=== PATIENT | male | born 1955 ===

== ENCOUNTER 2018-11-08 10:36 | Inpatient (IN) | payer MEDICARE ==
[2018-11-08] MEDS ORDERED: Aspirin 325 mg EC Tablets PO STA (11:49)
[2018-11-08] MEDS ORDERED: Sodium Chloride 0.9% 1,000 ML IV ONE (11:49)
--- NOTE | 2018-11-08 11:54 | C.PDOC ---
History Of Present Illness 63 y/o male with a PMHx of HTN, hypercholesterolemia, and CVA, COPD, presents to the ED for evaluation of left upper back pain, radiating to the left shoulder and arm, developing for the past 2-3 days. Last night he also noticed some left hand numbness. Patient admits the pain is worse with left arm movement. Denies any known trauma or injury, headache, dizziness, SOB, palpitations, or extremity weakness. Time Seen by Provider: 11/08/18 11:35 Chief Complaint (Nursing): Back Pain History Per: Patient History/Exam Limitations: no limitations Onset/Duration Of Symptoms: Days (x 3) Current Symptoms Are (Timing): Still Present Quality Of Discomfort: "Pain" Severity: Moderate Associated Symptoms: New Numbness (left hand) Exacerbating Factor(s): Movement (of left arm) Past Medical History Reviewed: Historical Data, Nursing Documentation, Vital Signs Vital Signs: Last Vital Signs Temp 97.9 F 11/08/18 10:57 Pulse 88 11/08/18 10:57 Resp 18 11/08/18 10:57 BP 150/83 11/08/18 10:57 Pulse Ox 97 11/08/18 10:57 - Medical History PMH: CVA, HTN, Hypercholesterolemia Surgical History: Appendectomy Other Surgeries: Right leg surgery - [facility] Procedures ANGIOPLASTY OR ATHERECTOMY OF OTHER NON-CORONARY VESSEL(S) (12/10/06) CONTRAST AORTOGRAM (12/10/06) CONTRAST ARTERIOGRAM-LEG (12/10/06) INSERTION OF [id number] PERIPHERAL VESSEL STENT(S) (12/10/06) INSERTION OF ONE VASCULAR STENT (12/10/06) PROCEDURE ON SINGLE VESSEL (12/10/06) Family History: States: Unknown Family Hx - Social History Hx Tobacco Use: Yes Hx Alcohol Use: Yes Hx Substance Use: No - Immunization History Hx Tetanus Toxoid Vaccination: No Hx Influenza Vaccination: No Hx Pneumococcal Vaccination: Yes Review Of Systems Constitutional: Negative for: Fever, Chills, Sweats Eyes: Negative for: Vision Change Cardiovascular: Positive for: Chest Pain (left). Negative for: Palpitations Respiratory: Negative for: Shortness of Breath, SOB with Excertion Gastrointestinal: Negative for: Nausea, Vomiting, Abdominal Pain Musculoskeletal: Positive for: Shoulder Pain (left), Arm Pain (left), Back Pain (left upper) Skin: Negative for: Rash, Lesions Neurological: Positive for: Numbness (left hand). Negative for: Weakness, Incoordination, Headache, Dizziness Physical Exam - Physical Exam Appears: Non-toxic, No Acute Distress Skin: Normal Color, Warm, No Rash Head: Normacephalic Eye(s): bilateral: PERRL Oral Mucosa: Moist Neck: Trachea Midline, Supple Chest: Tenderness (reproducible left anterior chest wall tenderness over the pec toris muscle) Cardiovascular: Rhythm Regular, No Murmur, No JVD Respiratory: No Accessory Muscle Use, No Rales, No Rhonchi, No Stridor, No Wheezing Gastrointestinal/Abdominal: Soft, No Tenderness, No Distention, No Guarding Extremity: Normal ROM (of LUE), No Pedal Edema, No Calf Tenderness, Capillary Refill (less than 2sec), No Swelling Pulses: Left Radial: Normal, Right Radial: Normal Neurological/Psych: Oriented x3, Normal Speech ED Course And Treatment - Laboratory Results Result Diagrams: 11/08/18 12:02 11/08/18 12:02 Lab Interpretation: No Acute Changes ECG: Interpreted By Me, Viewed By Me ECG Interpretation: Abnormal Interpretation Of ECG: SR@89/min, LAD, RBBB, T wave inversion in II, III, V4-V6 O2 Sat by Pulse Oximetry: 97 Pulse Ox Interpretation: Normal Progress Note: Blood work and urine sent to the lab. EKG and CXR ordered. Administered 325 mg PO ASA x1. NS IV fluids infusing. Blood work review, Troponin I - normal. EKG appears abnormal. Case discussed with and admission to tele arraned with Dx: CHest pain, abnoraml EKG Disposition - Disposition Disposition: HOSPITALIZED Disposition Time: 13:02 Condition: STABLE - Clinical Impression Clinical Impression: Chest pain, Abnormal EKG - PA / PLANT PHYSIOLOGIST / Resident Statement MD/DO has reviewed & agrees with the documentation as recorded. - Scribe Statement The provider has reviewed the documentation as recorded by the Scribkyara Suarez All medical record entries made by the Scribe were at my direction and pers onally dictated by me. I have reviewed the chart and agree that the record accurately reflects my personal performance of the history, physical exam, medical decision making, and the department course for this patient. I have also personally directed, reviewed, and agree with the discharge instructions and disposition.
[2018-11-08] MEDS ORDERED: Sodium Chloride 0.9% 1,000 ML ONE (12:04)
[2018-11-08] MEDS ORDERED: Aspirin 325 mg EC Tablets PO ONE (12:04)
[2018-11-08 12:13] LABS: BASO % 0.6 % (0.0-2.0); EOS # 0.1 K/uL (0.0-0.7); EOS % 2.2 % (0.0-4.0); HEMOGLOBIN 16.3 g/dL (12.0-18.0); LYMPH # 1.4 K/uL (1.0-4.3); LYMPH % 20.3 % (20.0-40.0); MEAN CELL VOLUME 92.4 fL (80.0-94.0); MEAN CORPUSCULAR HEMOGLOBIN 30.7 pg (27.0-31.0); MEAN CORPUSCULAR HGB CONC 33.3 g/dL (33.0-37.0); MEAN PLATELET VOLUME 8.7 fL (7.2-11.7); MONO # 0.5 K/uL (0.0-0.8); NEUT # 4.7 K/uL (1.8-7.0); NEUT % 68.9 % (50.0-75.0); NRBC % 0.1 % (0.0-2.0); RBC 5.3 Mil/uL (4.40-5.90); RED CELL DISTRIBUTION WIDTH 15.4 % (11.5-14.5); WHITE BLOOD COUNT 6.8 K/uL (4.8-10.8)
[2018-11-08 12:20] LABS: INR 1.1; PROTHROMBIN TIME 12.2 SECONDS (9.7-12.2)
[2018-11-08 12:28] LABS: ALB/GLOB RATIO 1.2 (1.0-2.1); ALBUMIN 4.2 g/dL (3.5-5.0); ALT/SGPT 7 U/L (21-72); AST/SGOT 26 U/L (17-59); BLOOD UREA NITROGEN 16 mg/dL (9-20); CALCIUM 9.3 mg/dl (8.6-10.4); GFR NON-AFRICAN AMERICAN > 60
[2018-11-08 12:37] LABS: B-TYPE NATRIURETIC PEPTIDE 350 pg/mL (0-900)
--- NOTE | 2018-11-08 12:49 | RAD ---
Date of service: 11/08/2018 HISTORY: Chest pain COMPARISON: No prior. TECHNIQUE: Chest PA and lateral FINDINGS: LINES AND TUBES: None. LUNG AND PLEURA: The lungs are hyperinflated and there is peribronchial thickening with chronic changes in both lungs. There is no focal consolidation. No pleural effusion or pneumothorax. HEART AND MEDIASTINUM: The heart is not enlarged. There are aortic atherosclerotic calcifications present. The hilar and mediastinal contours are within normal limits. SKELETAL STRUCTURES: The bony structures are within normal limits for the patient's age. VISUALIZED UPPER ABDOMEN: Normal. OTHER FINDINGS: None. IMPRESSION: No active pulmonary disease. COPD.
--- NOTE | 2018-11-08 14:21 | CP.PCM.PN ---
Subjective - Date & Time of Evaluation Date of Evaluation: 11/08/18 Time of Evaluation: 14:21 - Subjective Subjective: Medicine Progress Note - Dr Larson's service Patient is a 63 year old male with past medical history of COPD/emphysema, Hypertension, Hyperlipidemia who presented to the emergency room for left upper back pain for 2 days. Patient states that the back pain then started to radiate down to the left shoulder and left arm. He states that pain is associated with left arm numbness that has since resolved. He denies any trauma, weakness. Currently he states that the pain is 5/10 on pain scale. Denies headaches, dizziness, cp, palpitations, sob, urinary symptoms, changes in bowel habits. ED course: ASA 325mg PO x 1 Allergies: NKDA Medications: HCTZ 25mg, ASA 81mg, Lipitor 80mg, Metoprolol tartrate 50mg, Vitamin D3, Gabapentin 600mg Medical History: COPD/emphysema, Hypertension, Hyperlipidemia Surgical History: Appendectomy, Right lower extremity Vein transplant Social History: Smokes 10 cig/day, drinks 10-20 beers when he goes out, reports doing cocaine, last use was 1 week ago Family History: Mother - [place], Father - [place] Objective - Vital Signs/Intake and Output Vital Signs (last 24 hours): Temp Pulse Resp BP Pulse Ox 97.4 F L 71 18 149/94 H 97 11/08/18 13:48 11/08/18 13:48 11/08/18 13:48 11/08/18 13:48 11/08/18 13:48 - Labs Labs: 11/08/18 12:02 11/08/18 12:02 PT 12.2 SECONDS (9.7-12.2) 11/08/18 12:02 INR 1.1 11/08/18 12:02 APTT 40 SECONDS (21-34) H 11/08/18 12:02 - Constitutional Appears: Non-toxic, No Acute Distress - Head Exam Head Exam: ATRAUMATIC, NORMAL INSPECTION, NORMOCEPHALIC - Eye Exam Eye Exam: EOMI, Normal appearance - ENT Exam ENT Exam: Mucous Membranes Moist - Neck Exam Neck Exam: Full ROM. absent: Tenderness - Respiratory Exam Respiratory Exam: Clear to Ausculation Bilateral, NORMAL BREATHING PATTERN. absent: Rales, Rhonchi, Wheezes - Cardiovascular Exam Cardiovascular Exam: REGULAR RHYTHM, +S1, +S2 - GI/Abdominal Exam GI & Abdominal Exam: Soft, Normal Bowel Sounds. absent: Guarding, Rigid, Tenderness - Extremities Exam Extremities Exam: Full ROM, Normal Inspection. absent: Calf Tenderness - Back Exam Back Exam: NORMAL INSPECTION - Neurological Exam Neurological Exam: Alert, Awake, CN II-XII Intact, Oriented x3 - Psychiatric Exam Psychiatric exam: Normal Affect, Normal Mood - Skin Skin Exam: Dry, Normal Color, Warm Assessment and Plan - Assessment and Plan (Free Text) Assessment: Left arm numbness and pain -Stable, afebrile -EKG on admission showed NSR with T wave inversions, no comparison EKG available -CXR showed no active disease -Initial troponin negative, trend Q6H x 2 -F/U lipid panel, TSH, hemoglobin A1C -Continue ASA 81mg PO daily -Echocardiogram ordered -F/U UDS Hypertension -Norvasc 10mg PO x 1 dose given -Avoid BB as patient admits to using cocaine -Continue to monitor Hyperlipidemia -F/U lipid panel COPD/Emphysema -Duonebs Q6H prn shortness of breath GI/DVT ppx: -Protonix 40mg IVP daily -Lovenox 40mg SC daily Plan discussed with Dr Marsha Guevara DO PGY-2
[2018-11-08] MEDS ORDERED: Albuterol-Ipratrop 3 mg / 0.5 (3 ml) UD INH PRN (15:33)
[2018-11-08 18:22] LABS: SQUAMOUS EPITHIAL 1 /hpf (0-5); URINE BILIRUBIN NEGATIVE (NEGATIVE); URINE BLOOD NEGATIVE (NEGATIVE); URINE CLARITY Clear (Clear); URINE COLOR Yellow (YELLOW); URINE GLUCOSE (UA) NORMAL (Normal); URINE LEUKOCYTE ESTERASE NEG Leu/uL (Negative); URINE PROTEIN NEGATIVE (NEGATIVE)
[2018-11-08 19:03] LABS: BARBITURATES, UR NEGATIVE (NEGATIVE); BENZODIAZEPINES, UR NEGATIVE (NEGATIVE); OPIATES, UR NEGATIVE (NEGATIVE); PHENCYCLIDINE, UR NEGATIVE (NEGATIVE)
[2018-11-08 20:33] LABS: CK-MB 0.98 ng/mL (0.0-3.38)
[2018-11-08] MEDS: Acetaminophen-Codeine 300/30 mg Tab PO PRN (23:06)
--- NOTE | 2018-11-08 23:12 | CP.PCM.PN ---
Subjective - Date & Time of Evaluation Date of Evaluation: 11/08/18 Time of Evaluation: 14:20 - Subjective Subjective: Patient seen and evaluated Admitted with chest pain For stress test and ECHO in am Patient is a 63 year old male with past medical history of COPD/emphysema, Hypertension, Hyperlipidemia who presented to the emergency room for left upper back pain for 2 days. Patient states that the back pain then started to radiate down to the left shoulder and left arm. He states that pain is associated with left arm numbness that has since resolved. He denies any trauma, weakness. Currently he states that the pain is 5/10 on pain scale. Denies headaches, dizziness, cp, palpitations, sob, urinary symptoms, changes in bowel habits. ED course: ASA 325mg PO x 1 Allergies: NKDA Medications: HCTZ 25mg, ASA 81mg, Lipitor 80mg, Metoprolol tartrate 50mg, Vitamin D3, Gabapentin 600mg Medical History: COPD/emphysema, Hypertension, Hyperlipidemia Surgical History: Appendectomy, Right lower extremity Vein transplant Social History: Smokes 10 cig/day, drinks 10-20 beers when he goes out, reports doing cocaine, last use was 1 week ago Family History: Mother - DM, Father - [place] Objective - Vital Signs/Intake and Output Vital Signs (last 24 hours): Temp Pulse Resp BP Pulse Ox 97.4 F L 71 18 149/94 H 97 11/08/18 13:48 11/08/18 13:48 11/08/18 13:48 11/08/18 13:48 11/08/18 13:48 - Labs Labs: 11/08/18 12:02 11/08/18 12:02 PT 12.2 SECONDS (9.7-12.2) 11/08/18 12:02 INR 1.1 11/08/18 12:02 APTT 40 SECONDS (21-34) H 11/08/18 12:02 - Constitutional Appears: Non-toxic, No Acute Distress - Head Exam Head Exam: ATRAUMATIC, NORMAL INSPECTION, NORMOCEPHALIC - Eye Exam Eye Exam: EOMI, Normal appearance - ENT Exam ENT Exam: Mucous Membranes Moist - Neck Exam Neck Exam: Full ROM. absent: Tenderness - Respiratory Exam Respiratory Exam: Clear to Ausculation Bilateral, NORMAL BREATHING PATTERN. absent: Rales, Rhonchi, Wheezes - Cardiovascular Exam Cardiovascular Exam: REGULAR RHYTHM, +S1, +S2 - GI/Abdominal Exam GI & Abdominal Exam: Soft, Normal Bowel Sounds. absent: Guarding, Rigid, Tenderness - Extremities Exam Extremities Exam: Full ROM, Normal Inspection. absent: Calf Tenderness - Back Exam Back Exam: NORMAL INSPECTION - Neurological Exam Neurological Exam: Alert, Awake, CN II-XII Intact, Oriented x3 - Psychiatric Exam Psychiatric exam: Normal Affect, Normal Mood - Skin Skin Exam: Dry, Normal Color, Warm Assessment and Plan - Assessment and Plan (Free Text) Assessment: Left arm numbness and pain -Stable, afebrile -EKG on admission showed NSR with T wave inversions, no comparison EKG available -CXR showed no active disease -Initial troponin negative, trend Q6H x 2 -F/U lipid panel, TSH, hemoglobin A1C -Continue ASA 81mg PO daily -Echocardiogram ordered -F/U UDS -Stress test in am Hypertension -Norvasc 10mg PO x 1 dose given -Avoid BB as patient admits to using cocaine -Continue to monitor Hyperlipidemia -F/U lipid panel COPD/Emphysema -Duonebs Q6H prn shortness of breath GI/DVT ppx: -Protonix 40mg IVP daily -Lovenox 40mg SC daily Objective - Vital Signs/Intake and Output Vital Signs (last 24 hours): Temp Pulse Resp BP Pulse Ox 97.8 F 91 H 20 140/80 97 11/08/18 18:13 11/08/18 19:20 11/08/18 18:13 11/08/18 19:20 11/08/18 18:55 - Medications Medications: Current Medications Acetaminophen/Codeine Phosphate (Tylenol/Codeine 300 Mg/30 Mg) 1 ea PO Q6 PRN PRN Reason: Pain, moderate (4-7) Last Admin: 11/08/18 23:06 Dose: 1 ea Albuterol/Ipratropium (Duoneb 3 Mg/0.5 Mg (3 Ml) Ud) 3 ml INH RQ6 PRN PRN Reason: Shortness of Breath Aspirin (Aspirin Chewable) 81 mg PO DAILY [facility] Enoxaparin Sodium (Lovenox) 40 mg SC DAILY [facility] Pantoprazole Sodium (Protonix Inj) 40 mg IVP DAILY [facility] - Labs Labs: 11/08/18 12:02 11/08/18 12:02 PT 12.2 SECONDS (9.7-12.2) 11/08/18 12:02 INR 1.1 11/08/18 12:02 APTT 40 SECONDS (21-34) H 11/08/18 12:02
[2018-11-09 03:18] LABS: CK-MB 0.78 ng/mL (0.0-3.38); TROPONIN I 0.016 ng/mL (0.00-0.120)
[2018-11-09 07:17] LABS: EOS # 0.2 K/uL (0.0-0.7)
[2018-11-09 07:44] LABS: BASO # 0.1 K/uL (0.0-0.2); BASO % 0.7 % (0.0-2.0); LYMPH # 1.3 K/uL (1.0-4.3)
[2018-11-09 07:45] LABS: ALB/GLOB RATIO 1.2 (1.0-2.1); ALBUMIN 3.8 g/dL (3.5-5.0); ALT/SGPT 15 U/L (21-72); AST/SGOT 20 U/L (17-59); BLOOD UREA NITROGEN 19 mg/dL (9-20); CALCIUM 9.1 mg/dl (8.6-10.4); GFR NON-AFRICAN AMERICAN 55; HDL CHOLESTEROL 33 mg/dL (30-70)
[2018-11-09 07:50] LABS: EOS % 2.5 % (0.0-4.0); HEMOGLOBIN 16.4 g/dL (12.0-18.0); LYMPH % 18.3 % (20.0-40.0); MEAN CELL VOLUME 90.9 fL (80.0-94.0); MEAN CORPUSCULAR HEMOGLOBIN 31.5 pg (27.0-31.0); MEAN CORPUSCULAR HGB CONC 34.6 g/dL (33.0-37.0); MEAN PLATELET VOLUME 9.2 fL (7.2-11.7); MONO # 0.6 K/uL (0.0-0.8); MONO % 7.6 % (0.0-10.0); NEUT # 5.2 K/uL (1.8-7.0); NEUT % 70.9 % (50.0-75.0); NRBC % 0.2 % (0.0-2.0); RBC 5.21 Mil/uL (4.40-5.90); RED CELL DISTRIBUTION WIDTH 14.9 % (11.5-14.5); WHITE BLOOD COUNT 7.4 K/uL (4.8-10.8)
[2018-11-09 07:55] LABS: LDL CHOLESTEROL 134 mg/dL (0-129)
[2018-11-09] MEDS ORDERED: Caffeine Citrated **INJ** 20 MG/ML IV ONE (08:01)
--- NOTE | 2018-11-09 08:59 | CP.PCM.PN ---
Subjective - Date & Time of Evaluation Date of Evaluation: 11/09/18 Time of Evaluation: 08:59 - Subjective Subjective: PGY-2 Progress Note Patient seen and examined at bedside. Per nursing no acute events occurred overnight. Patient denies any fevers, chills, headaches, dizziness, chest pain, dizziness, syncopal episodes, or any other complaints. Objective - Vital Signs/Intake and Output Vital Signs (last 24 hours): Temp Pulse Resp BP Pulse Ox 97.9 F 68 20 150/79 95 11/09/18 04:53 11/09/18 07:30 11/09/18 04:53 11/09/18 04:53 11/09/18 04:53 - Medications Medications: Current Medications Acetaminophen/Codeine Phosphate (Tylenol/Codeine 300 Mg/30 Mg) 1 ea PO Q6 PRN PRN Reason: Pain, moderate (4-7) Last Admin: 11/08/18 23:06 Dose: 1 ea Albuterol/Ipratropium (Duoneb 3 Mg/0.5 Mg (3 Ml) Ud) 3 ml INH RQ6 PRN PRN Reason: Shortness of Breath Aspirin (Aspirin Chewable) 81 mg PO DAILY [facility] Enoxaparin Sodium (Lovenox) 40 mg SC DAILY [facility] Hydrochlorothiazide (Hydrodiuril) 25 mg PO DAILY [facility] Pantoprazole Sodium (Protonix Inj) 40 mg IVP DAILY [facility] Rosuvastatin Calcium (Crestor) 10 mg PO HS [facility] - Labs Labs: 11/09/18 07:04 11/09/18 07:04 PT 12.2 SECONDS (9.7-12.2) 11/08/18 12:02 INR 1.1 11/08/18 12:02 APTT 40 SECONDS (21-34) H 11/08/18 12:02 - Head Exam Head Exam: ATRAUMATIC, NORMAL INSPECTION, NORMOCEPHALIC - Eye Exam Eye Exam: EOMI, Normal appearance, PERRL. absent: Periorbital tenderness Pupil Exam: NORMAL ACCOMODATION, PERRL. absent: Irregular, Unequal - ENT Exam ENT Exam: Mucous Membranes Moist, Normal Oropharynx - Respiratory Exam Respiratory Exam: Clear to Ausculation Bilateral, NORMAL BREATHING PATTERN. absent: Prolonged Expiratory Phase, Respiratory Distress - Cardiovascular Exam Cardiovascular Exam: REGULAR RHYTHM, +S1, +S2 - GI/Abdominal Exam GI & Abdominal Exam: Soft, Normal Bowel Sounds. absent: Rigid, Hyperactive Bowel Sounds - Neurological Exam Neurological Exam: Alert, Awake, Normal Gait, Oriented x3 - Psychiatric Exam Psychiatric exam: Normal Affect, Normal Mood - Skin Skin Exam: Dry, Intact, Normal Color Assessment and Plan - Assessment and Plan (Free Text) Plan: Left arm numbness and pain -Stable, afebrile -EKG on admission showed NSR with T wave inversions, no comparison EKG available -CXR showed no active disease -troponin (-)x3 -pro-BNP: 380 -Cardiology Dr. Dang consulted: -Stress Test -Echocardiogram -F/U lipid panel, TSH, hemoglobin A1C -Continue ASA 81mg PO daily -UDS positive for cocaine -Avoid beta-blockers due to cocaine use Hypertension -Norvasc 10mg PO x 1 dose given -Avoid BB as patient admits to using cocaine -Continue to monitor Hyperlipidemia -lipid panel :Cholesterol-192, LDL-134, HDL-33, Triglycerides-137 COPD/Emphysema -Duonebs Q6H prn shortness of breath GI/DVT ppx: -Protonix 40mg IVP daily -Lovenox 40mg SC daily Dispo: Likely to have cardiac cath done. Will f/u with Dr. Dang for recc's. Plan discussed with Dr Marsha Vidal, PGY-2
[2018-11-09] MEDS: Enoxaparin 40 mg Syringe SC SCH (12:11)
[2018-11-09] MEDS: Acetaminophen-Codeine 300/30 mg Tab PO PRN (18:33)
--- NOTE | 2018-11-10 06:36 | HP ---
HISTORY OF PRESENT ILLNESS: The patient admitted to the hospital with chief complaint of chest pain. Denied shortness of breath . Came to the ER, advised admission. PHYSICAL EXAMINATION: GENERAL: The patient is awake, alert, and oriented. VITAL SIGNS: Temperature 98, pulse 90. HEENT: Within normal limits. NECK: Supple. CHEST: Symmetrical. HEART: Regular. ABDOMEN: Soft. EXTREMITIES: No edema. IMPRESSION AND PLAN: Patient suffers from Acute coronary syndrome .Patient bedrest, . María Larson MD
[2018-11-10 07:17] LABS: BASO % 0.4 % (0.0-2.0); EOS # 0.2 K/uL (0.0-0.7); HEMOGLOBIN 16.2 g/dL (12.0-18.0); LYMPH # 1.1 K/uL (1.0-4.3); LYMPH % 19.3 % (20.0-40.0); MEAN CELL VOLUME 90.9 fL (80.0-94.0); MEAN CORPUSCULAR HEMOGLOBIN 30.6 pg (27.0-31.0); MEAN CORPUSCULAR HGB CONC 33.6 g/dL (33.0-37.0); MEAN PLATELET VOLUME 8.7 fL (7.2-11.7); MONO # 0.5 K/uL (0.0-0.8); MONO % 8.2 % (0.0-10.0); NEUT # 4.1 K/uL (1.8-7.0); NEUT % 69.1 % (50.0-75.0); NRBC % 0.1 % (0.0-2.0); RBC 5.31 Mil/uL (4.40-5.90); RED CELL DISTRIBUTION WIDTH 15.2 % (11.5-14.5); WHITE BLOOD COUNT 5.9 K/uL (4.8-10.8)
[2018-11-10 07:43] LABS: ALB/GLOB RATIO 1.2 (1.0-2.1); ALBUMIN 3.9 g/dL (3.5-5.0); ALT/SGPT 11 U/L (21-72); AST/SGOT 18 U/L (17-59); BLOOD UREA NITROGEN 20 mg/dL (9-20); CALCIUM 9.4 mg/dl (8.6-10.4); GFR NON-AFRICAN AMERICAN 55
[2018-11-10] MEDS: Acetaminophen-Codeine 300/30 mg Tab PO PRN (07:57)
--- NOTE | 2018-11-10 07:59 | CP.PCM.PN ---
Subjective - Date & Time of Evaluation Date of Evaluation: 11/09/18 Time of Evaluation: 20:40 - Subjective Subjective: Patient with abnormal stress test For cardiac cath tomorrow at 6pm NPO after lunch Objective - Vital Signs/Intake and Output Vital Signs (last 24 hours): Temp Pulse Resp BP Pulse Ox 97.9 F 68 20 150/79 95 11/09/18 04:53 11/09/18 07:30 11/09/18 04:53 11/09/18 04:53 11/09/18 04:53 - Medications Medications: Current Medications Acetaminophen/Codeine Phosphate (Tylenol/Codeine 300 Mg/30 Mg) 1 ea PO Q6 PRN PRN Reason: Pain, moderate (4-7) Last Admin: 11/08/18 23:06 Dose: 1 ea Albuterol/Ipratropium (Duoneb 3 Mg/0.5 Mg (3 Ml) Ud) 3 ml INH RQ6 PRN PRN Reason: Shortness of Breath Aspirin (Aspirin Chewable) 81 mg PO DAILY [facility] Enoxaparin Sodium (Lovenox) 40 mg SC DAILY [facility] Hydrochlorothiazide (Hydrodiuril) 25 mg PO DAILY [facility] Pantoprazole Sodium (Protonix Inj) 40 mg IVP DAILY [facility] Rosuvastatin Calcium (Crestor) 10 mg PO HS [facility] - Labs Labs: 11/09/18 07:04 11/09/18 07:04 PT 12.2 SECONDS (9.7-12.2) 11/08/18 12:02 INR 1.1 11/08/18 12:02 APTT 40 SECONDS (21-34) H 11/08/18 12:02 - Head Exam Head Exam: ATRAUMATIC, NORMAL INSPECTION, NORMOCEPHALIC - Eye Exam Eye Exam: EOMI, Normal appearance, PERRL. absent: Periorbital tenderness Pupil Exam: NORMAL ACCOMODATION, PERRL. absent: Irregular, Unequal - ENT Exam ENT Exam: Mucous Membranes Moist, Normal Oropharynx - Respiratory Exam Respiratory Exam: Clear to Ausculation Bilateral, NORMAL BREATHING PATTERN. absent: Prolonged Expiratory Phase, Respiratory Distress - Cardiovascular Exam Cardiovascular Exam: REGULAR RHYTHM, +S1, +S2 - GI/Abdominal Exam GI & Abdominal Exam: Soft, Normal Bowel Sounds. absent: Rigid, Hyperactive Bowel Sounds - Neurological Exam Neurological Exam: Alert, Awake, Normal Gait, Oriented x3 - Psychiatric Exam Psychiatric exam: Normal Affect, Normal Mood - Skin Skin Exam: Dry, Intact, Normal Color Assessment and Plan - Assessment and Plan (Free Text) Plan: Left arm numbness and pain -Stable, afebrile -EKG on admission showed NSR with T wave inversions, no comparison EKG available -CXR showed no active disease -troponin (-)x3 -pro-BNP: 380 -Cardiology Dr. Dang consulted: -Stress Test -Echocardiogram -F/U lipid panel, TSH, hemoglobin A1C -Continue ASA 81mg PO daily -UDS positive for cocaine -Avoid beta-blockers due to cocaine use Hypertension -Norvasc 10mg PO x 1 dose given -Avoid BB as patient admits to using cocaine -Continue to monitor Hyperlipidemia -lipid panel :Cholesterol-192, LDL-134, HDL-33, Triglycerides-137 COPD/Emphysema -Duonebs Q6H prn shortness of breath GI/DVT ppx: -Protonix 40mg IVP daily -Lovenox 40mg SC daily Dispo: Cardiac cath in am Objective - Vital Signs/Intake and Output Vital Signs (last 24 hours): Temp Pulse Resp BP Pulse Ox 98.1 F 79 20 142/92 H 94 L 11/10/18 04:42 11/10/18 07:09 11/10/18 04:42 11/10/18 04:42 11/10/18 04:42 - Medications Medications: Current Medications Acetaminophen/Codeine Phosphate (Tylenol/Codeine 300 Mg/30 Mg) 1 ea PO Q6 PRN PRN Reason: Pain, moderate (4-7) Last Admin: 11/09/18 18:33 Dose: 1 ea Albuterol/Ipratropium (Duoneb 3 Mg/0.5 Mg (3 Ml) Ud) 3 ml INH RQ6 PRN PRN Reason: Shortness of Breath Aspirin (Aspirin Chewable) 81 mg PO DAILY [facility] Last Admin: 11/09/18 12:10 Dose: 81 mg Enoxaparin Sodium (Lovenox) 40 mg SC DAILY [facility] Last Admin: 11/09/18 12:11 Dose: 40 mg Hydrochlorothiazide (Hydrodiuril) 25 mg PO DAILY [facility] Last Admin: 11/09/18 12:10 Dose: 25 mg Pantoprazole Sodium (Protonix Inj) 40 mg IVP DAILY [facility] Last Admin: 11/09/18 12:11 Dose: 40 mg Rosuvastatin Calcium (Crestor) 10 mg PO HS [facility] Last Admin: 11/09/18 23:47 Dose: 10 mg - Labs Labs: 11/10/18 07:07 11/10/18 07:07 PT 12.2 SECONDS (9.7-12.2) 11/08/18 12:02 INR 1.1 11/08/18 12:02 APTT 40 SECONDS (21-34) H 11/08/18 12:02
--- NOTE | 2018-11-10 08:46 | CP.PCM.PN ---
Subjective - Date & Time of Evaluation Date of Evaluation: 11/10/18 Time of Evaluation: 08:45 - Subjective Subjective: Medicine Progress Note - Dr Larson's service Patient seen and examined at bedside. Per nursing no acute events overnight. Patient has an abnormal stress test yesterday, NPO for cardiac cath today. Patient still reports having left upper arm pain. Offers no other complaints at this time. Objective - Vital Signs/Intake and Output Vital Signs (last 24 hours): Temp Pulse Resp BP Pulse Ox 98 F 79 20 122/81 94 L 11/10/18 07:00 11/10/18 07:09 11/10/18 07:00 11/10/18 07:00 11/10/18 07:00 - Medications Medications: Current Medications Acetaminophen/Codeine Phosphate (Tylenol/Codeine 300 Mg/30 Mg) 1 ea PO Q6 PRN PRN Reason: Pain, moderate (4-7) Last Admin: 11/10/18 07:57 Dose: 1 ea Albuterol/Ipratropium (Duoneb 3 Mg/0.5 Mg (3 Ml) Ud) 3 ml INH RQ6 PRN PRN Reason: Shortness of Breath Aspirin (Aspirin Chewable) 81 mg PO DAILY [facility] Last Admin: 11/09/18 12:10 Dose: 81 mg Enoxaparin Sodium (Lovenox) 40 mg SC DAILY [facility] Last Admin: 11/09/18 12:11 Dose: 40 mg Hydrochlorothiazide (Hydrodiuril) 25 mg PO DAILY [facility] Last Admin: 11/09/18 12:10 Dose: 25 mg Pantoprazole Sodium (Protonix Inj) 40 mg IVP DAILY [facility] Last Admin: 11/09/18 12:11 Dose: 40 mg Rosuvastatin Calcium (Crestor) 10 mg PO HS [facility] Last Admin: 11/09/18 23:47 Dose: 10 mg - Labs Labs: 11/10/18 07:07 11/10/18 07:07 PT 12.2 SECONDS (9.7-12.2) 11/08/18 12:02 INR 1.1 11/08/18 12:02 APTT 40 SECONDS (21-34) H 11/08/18 12:02 - Additional Findings Additional findings: - Head Exam Head Exam: ATRAUMATIC, NORMAL INSPECTION, NORMOCEPHALIC - Eye Exam Eye Exam: EOMI, Normal appearance, PERRL. absent: Periorbital tenderness Pupil Exam: NORMAL ACCOMODATION, PERRL. absent: Irregular, Unequal - ENT Exam ENT Exam: Mucous Membranes Moist, Normal Oropharynx - Respiratory Exam Respiratory Exam: Clear to Ausculation Bilateral, NORMAL BREATHING PATTERN. absent: Prolonged Expiratory Phase, Respiratory Distress - Cardiovascular Exam Cardiovascular Exam: REGULAR RHYTHM, +S1, +S2 - GI/Abdominal Exam GI & Abdominal Exam: Soft, Normal Bowel Sounds. absent: Rigid, Hyperactive Bowel Sounds - Neurological Exam Neurological Exam: Alert, Awake, Normal Gait, Oriented x3 - Psychiatric Exam Psychiatric exam: Normal Affect, Normal Mood - Skin Skin Exam: Dry, Intact, Normal Color Assessment and Plan - Assessment and Plan (Free Text) Assessment: Left arm numbness and pain -Stable, afebrile -EKG on admission showed NSR with T wave inversions, no comparison EKG available -CXR showed no active disease -troponin (-)x3, pro-BNP: 380 -Cardiology Dr. Dang consulted: -Stress Test - abnormal -Echocardiogram - official read is pending -Continue ASA 81mg PO daily -UDS positive for cocaine -Avoid beta-blockers due to cocaine use -NPO for cardiac cath this evening Hypertension -Norvasc 10mg PO x 1 dose given -Avoid BB as patient admits to using cocaine -Continue to monitor Hyperlipidemia -lipid panel :Cholesterol-192, LDL-134, HDL-33, Triglycerides-137 COPD/Emphysema -Duonebs Q6H prn shortness of breath GI/DVT ppx: -Protonix 40mg IVP daily -Lovenox 40mg SC daily Plan discussed with Dr Marsha Guevara DO PGY-2
[2018-11-10] MEDS: Enoxaparin 40 mg Syringe SC SCH (09:28)
[2018-11-10] MEDS ORDERED: Verapamil 2 ML ONE (17:44)
[2018-11-10] MEDS ORDERED: Nitroglycerin 50mg in D5W 50 MG/250 ML BOTTLE IV ONE (17:44)
[2018-11-10] MEDS ORDERED: Lidocaine 1% 20 MG/2 ML PF AMP ONE (17:44)
[2018-11-10] MEDS ORDERED: Midazolam 2 MG/2 ML VIAL ONE (17:50)
[2018-11-10] MEDS ORDERED: Iodixanol 320 MG/ML 100 ML BOTTLE IV ONE ×2 (17:51→18:26)
[2018-11-10] MEDS ORDERED: Iodixanol 320 MG/ML 200 ML BOTTLE IV ONE (18:22)
[2018-11-10] MEDS ORDERED: Heparin25000 units/250ml 1/2NS 25,000 UNITS/250 ML BAG IV PRN (18:36)
--- NOTE | 2018-11-10 18:39 | CP.PCM.CON ---
History of Present Illness - History of Present Illness History of Present Illness: ICU Consult Note for Dr. Santos 63 year old male with past medical history of COPD/emphysema, Hypertension, Hyperlipidemia who presented to the emergency room for left upper back pain for 2 days. Was found to have abnormal stress test and had cardiac cath today performed by Dr. 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 Reason for ICU consult is for monitoring post- cardiac cath procedure. Plan as per Cardiology is for pt to be transferred to [facility] for possible CABG and aneurysmal repair. Pt denies any acute complaints at this time. 12-point ROS obtained, otherwise neg as per pt. Allergies: NKDA Current meds: reviewed as per MAR Medical History: COPD/emphysema, Hypertension, Hyperlipidemia Surgical History: Appendectomy, Right lower extremity Vein transplant Social History: Smokes 10 cig/day, drinks 10-20 beers when he goes out, reports doing cocaine, last use was 1 week ago Family History: Mother - DM, Father - MS PMD: Dr. Larson Review of Systems - Constitutional Constitutional: absent: Chills, Fever - Cardiovascular Cardiovascular: absent: Chest Pain, Dyspnea on Exertion - Respiratory Respiratory: absent: Cough, Dyspnea - Gastrointestinal Gastrointestinal: absent: Abdominal Pain, Constipation, Diarrhea, Nausea, Vomiting - Neurological Neurological: Numbness, Tingling Past Patient History - Past Social History Smoking Status: Heavy Smoker > 10 Cigarettes Daily - CARDIAC Hx Hypercholesterolemia: Yes Hx Hypertension: Yes - NEUROLOGICAL HX Cerebrovascular Accident: Yes - PSYCHIATRIC Hx Substance Use: No - SURGICAL HISTORY Hx Appendectomy: Yes Meds Allergies/Adverse Reactions: Allergies Allergy/AdvReac Type Severity Reaction Status Date / Time No Known Allergies Allergy Verified 11/08/18 11:00 - Medications Medications: Current Medications Acetaminophen/Codeine Phosphate (Tylenol/Codeine 300 Mg/30 Mg) 1 ea PO Q6 PRN PRN Reason: Pain, moderate (4-7) Last Admin: 11/10/18 07:57 Dose: 1 ea Albuterol/Ipratropium (Duoneb 3 Mg/0.5 Mg (3 Ml) Ud) 3 ml INH RQ6 PRN PRN Reason: Shortness of Breath Aspirin (Aspirin Chewable) 81 mg PO DAILY [facility] Last Admin: 11/10/18 09:24 Dose: 81 mg Enoxaparin Sodium (Lovenox) 40 mg SC DAILY [facility] Last Admin: 11/10/18 09:28 Dose: Not Given Hydrochlorothiazide (Hydrodiuril) 25 mg PO DAILY [facility] Last Admin: 11/10/18 09:24 Dose: 25 mg Pantoprazole Sodium (Protonix Inj) 40 mg IVP DAILY [facility] Last Admin: 11/10/18 09:23 Dose: 40 mg Rosuvastatin Calcium (Crestor) 10 mg PO HS [facility] Last Admin: 11/09/18 23:47 Dose: 10 mg Physical Exam - Constitutional Appears: Non-toxic, No Acute Distress - Head Exam Head Exam: ATRAUMATIC, NORMOCEPHALIC - Eye Exam Eye Exam: EOMI, Normal appearance, PERRL - ENT Exam ENT Exam: Mucous Membranes Moist - Respiratory Exam Respiratory Exam: Clear to Auscultation Bilateral, NORMAL BREATHING PATTERN. absent: Rales, Rhonchi, Wheezes - Cardiovascular Exam Cardiovascular Exam: +S1, +S2. absent: Gallop, Rubs, Systolic Murmur - GI/Abdominal Exam GI & Abdominal Exam: Normal Bowel Sounds, Soft. absent: Distended, Organomegaly, Tenderness - Extremities Exam Extremities exam: Positive for: normal capillary refill, normal inspection, pedal pulses present Additional comments: Catheter insertion site c/d/i, no active bleeding at this time - Neurological Exam Neurological exam: Alert, Oriented x3 - Skin Skin Exam: Dry, Intact, Warm Results - Vital Signs Recent Vital Signs: Last Vital Signs Temp 98.2 F 11/10/18 15:00 Pulse 77 11/10/18 16:00 Resp 20 11/10/18 15:00 BP 146/84 11/10/18 15:00 Pulse Ox 95 11/10/18 15:00 - Labs Result Diagrams: 11/10/18 07:07 11/10/18 07:07 Labs: Laboratory Results - last 24 hr 11/10/18 11/10/18 07:07 07:07 WBC 5.9 RBC 5.31 Hgb 16.2 Hct 48.3 MCV 90.9 MCH 30.6 MCHC 33.6 RDW 15.2 H Plt Count 121 L MPV 8.7 Neut % (Auto) 69.1 Lymph % (Auto) 19.3 L Craig % (Auto) 8.2 Eos % (Auto) 3.0 Baso % (Auto) 0.4 Neut # (Auto) 4.1 Lymph # (Auto) 1.1 Craig # (Auto) 0.5 Eos # (Auto) 0.2 Baso # (Auto) 0.0 Sodium 137 Potassium 4.6 Chloride 101 Carbon Dioxide 32 H Anion Gap 9 L BUN 20 Creatinine 1.3 Est GFR ( Amer) > 60 Est GFR (Non-Af Amer) 55 Random Glucose 105 Calcium 9.4 Phosphorus 3.4 Magnesium 2.0 Total Bilirubin 0.7 AST 18 ALT 11 L D Alkaline Phosphatase 66 Total Protein 7.1 Albumin 3.9 Globulin 3.2 Albumin/Globulin Ratio 1.2 Assessment & Plan - Assessment and Plan (Free Text) Assessment: 63 year old male with past medical history of COPD/emphysema, Hypertension, Hyperlipidemia who presented to the emergency room for left upper back pain for 2 days. Was found to have abnormal stress test and had cardiac cath today performed by Dr. 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 Reason for ICU consult is for monitoring post- cardiac cath procedure. Plan as per Cardiology is for pt to be transferred to [facility] for possible CABG and aneurysmal repair. Plan: Neuro: -AAOx3 -No gross deficits on exam, will cont to monitor Cardio: -Cardiac cath findings today as noted above: RCA 100% occlusion, LCx 100% occlusion, LAD prox 90% occlusion, EF 55-65% -Dr. Dang consulted, recs appreciated -Pt awaiting transfer to [facility] for possible CABG and aneurysmal repair -Abnormal stress test in w/u -Trops negs x3, pro-BNP on admission 380 -EKG on admission demonstrated NSR with T wave inversions -C/w ASA daily -Heparin bolus and drip ordered -Lovenox d/c'd -Avoid beta-blockers due to cocaine use -Hx HTN, cont to monitor -C/w Crestor Pulm: -NC at 2L -Saturating well currently -Hx COPD/emphysema -Duonebs prn for sob GI: -HHD -Protonix -IVF 1/2 NS @ 60 cc/hr -No acute issues at this time, cont to monitor Heme: -H/H stable, no leukocytosis -S/p cardiac cath procedure today, cont to monitor Renal: -Bun/Cr wnl -Trend I's/O's PPX: -Protonix, Heparin drip Dispo: Pending transfer to [facility] for possible CABG and aneurysmal repair. Pt seen, examined with, and plan discussed with Dr. Santos, attending physician. Thien Montana DO PGY-1, G[employer] Pager #[phone]
[2018-11-10] MEDS ORDERED: Sodium Chloride 0.45% 1,000 ML IV SCH (18:45)
--- NOTE | 2018-11-10 19:09 | CP.PCM.PN ---
Subjective - Date & Time of Evaluation Date of Evaluation: 11/10/18 Time of Evaluation: 19:05 - Subjective Subjective: Patient s/p cath 1. L Main and proximal LAD: Severe aneurysmal diseae 2. LAD: Proximal 90-95% stenosis 3. L Cx: Proximal 100% 4. RCA: Proximal 100% RCA and L Cx filled by LAD collaterals 5. EF: 50%, Infero basal akineis, EDP 12, No Plan: CABG plus aneurysm resection ot ligation transfer to ICU on Heparin drip Objective - Vital Signs/Intake and Output Vital Signs (last 24 hours): Temp Pulse Resp BP Pulse Ox 98.2 F 77 20 146/84 95 11/10/18 15:00 11/10/18 16:00 11/10/18 15:00 11/10/18 15:00 11/10/18 15:00 - Medications Medications: Current Medications Acetaminophen/Codeine Phosphate (Tylenol/Codeine 300 Mg/30 Mg) 1 ea PO Q6 PRN PRN Reason: Pain, moderate (4-7) Last Admin: 11/10/18 07:57 Dose: 1 ea Albuterol/Ipratropium (Duoneb 3 Mg/0.5 Mg (3 Ml) Ud) 3 ml INH RQ6 PRN PRN Reason: Shortness of Breath Aspirin (Aspirin Chewable) 81 mg PO DAILY [facility] Last Admin: 11/10/18 09:24 Dose: 81 mg Hydrochlorothiazide (Hydrodiuril) 25 mg PO DAILY [facility] Last Admin: 11/10/18 09:24 Dose: 25 mg Sodium Chloride (Sodium Chloride 0.45%) 1,000 mls @ 60 mls/hr IV .[id number] [facility] Heparin Sodium/Sodium Chloride (Heparin 68499 Units/250ml 1/2 Normal Saline) 25,000 units in 250 mls @ 9.253 mls/hr IV .Q24H PRN; Protocol PRN Reason: PROTOCOL Pantoprazole Sodium (Protonix Inj) 40 mg IVP DAILY [facility] Last Admin: 11/10/18 09:23 Dose: 40 mg Rosuvastatin Calcium (Crestor) 40 mg PO HS [facility] - Labs Labs: 11/10/18 07:07 11/10/18 07:07 PT 12.2 SECONDS (9.7-12.2) 11/08/18 12:02 INR 1.1 11/08/18 12:02 APTT 40 SECONDS (21-34) H 11/08/18 12:02
--- NOTE | 2018-11-10 21:34 | CARD ---
APPROVED REPORT Date of service: 11/08/2018 EKG Measurement Heart [id number] <Conclusion> Normal sinus rhythm Possible Left atrial enlargement Right bundle branch block T wave abnormality, consider inferolateral ischemia Abnormal ECG
--- NOTE | 2018-11-11 04:16 | CARD ---
APPROVED REPORT Date of service: 11/09/2018 Protocol: LEXISCAN Test Type: LEXISCAN STRESS Test Indications: CHEST PAIN Target HR: 154 bpm Resting ECG: NSR W/ RBBB AND ISCHEMIC CHANGES FROM V1-V6 Resting Heart Rate: 76 bpm Resting Blood Pressure: 148/80mmHg submaximum (85%): 131 bpm TEST SUMMARY PREINFSNHYPERV.10:[id number]/80.0. INFUSIONDOSE 100:300.00.01.960769/80.0. LIEDJXUAH42:[id number]/80.1. PROCEDURE Pharmacologic stress testing was performed using 0.4mg per 5ml of regadenoson given intravenously over 7-10 seconds. POST EXERCISE Reason for Termination: Protocol Completed Target HR: No Max HR: 76 bpm 63% of Maximum Predicted HR: 154 bpm Exercise duration: 00:30 min:sec, 0 Stage Exercise capacity: 1.0METs Max Blood Pressure: 148/80mmHg Blood Pressure response to exercise: normal resting BP - appropriate response Heart Rate response to exercise: appropriate Chest Pain: No, none Angina index: 0 Arrhythmia: No, none ST Change: Yes, Depression downsloping 1MM V4-V6 Deviation: 0 mm INTERPRETATION Stress EKG Conclusion: POSITIVE LEXISCAN STRESS TEST NORMAL BP RESPONSE TO LEXISCAN NUCLEAR STUDIES TO BE READ SEPARATELY EXAM: Myocardial Perfusion STRESS/REST Imaging Protocol The imaging protocol used to acquire images was Stress Tc-99m/rest Tc-99m 1 day Stress Spect myocardial perfusion imaging was performed in supine position 45 minutes following the injection of 13 mCi of Tc-99 Myoview. Gated Rest Spect was performed 44 minutes after intravenous 33 mCi Tc-99 Myoview injection. The images were gated to evaluate regional wall motion and calculate ventricular ejection fraction.Images were reconstructed using backfilter projection method in short horizontal and verticle long axis. Spect slices were generated. RESTING DATA JUH774.25mgCV6.80L/min ESV42.00mlMyocardial Jswl620.00g Av. Heart Rate78.00bpm EF60.00% STRESS DATA IJG550.79wqAI9.50L/min ESV47.00mlMyocardial Swfk235.00g EF66.00% Regional WT score at stress:0.00 Regional WM score at stress:0.00 Summed WT score at stress:6.00 Av. Heart Rate72.00bpmSummed WM score at stress:0.00 LV Perf. Quant 17 Seg. SSS10.00 17 Seg. SRS16.00 17 Seg. SDS1.00 Stress Defect Extent (% LAD)0.00Rest Defect Extent (% LAD)0.00Rev. Defect Extent (% LAD)0.00 Stress Defect Extent (% LCX)58.80Rest Defect Extent (% LCX)41.30Rev. Defect Extent (% LCX)20.00 Stress Defect Extent (% RCA)25.60Rest Defect Extent (% RCA)64.40Rev. Defect Extent (% RCA)0.00 Stress Defect Extent (% MONICA)22.20Rest Defect Extent (% MONICA)25.40Rev. Defect Extent (% MONICA)3.90 Other Information Quality:Good IMPRESSION Abnormal Myocardial Perfusion exercise stress study Left Ventricle LV Function:Left ventricle systolic function is normal. The Ejection Fraction is >55%. Conclusion 1. Moderate sized fixed inferolateral defect with nick- infarct ischemia. Normal EF 2. Abnormal stress test
[2018-11-11] MEDS ORDERED: Nitroglycerin 50mg in D5W 50 MG/250 ML BOTTLE IV SCH (05:00)
[2018-11-11] MEDS ORDERED: Sodium Chloride 0.9% 1,000 ML IV ONE (05:06)
[2018-11-11 05:07] LABS: BASO % 0.3 % (0.0-2.0); EOS # 0.2 K/uL (0.0-0.7); EOS % 2.7 % (0.0-4.0); HEMOGLOBIN 16.4 g/dL (12.0-18.0); LYMPH # 1.3 K/uL (1.0-4.3); LYMPH % 15.9 % (20.0-40.0); MEAN CELL VOLUME 91.1 fL (80.0-94.0); MEAN CORPUSCULAR HEMOGLOBIN 30.6 pg (27.0-31.0); MEAN CORPUSCULAR HGB CONC 33.6 g/dL (33.0-37.0); MEAN PLATELET VOLUME 8.5 fL (7.2-11.7); MONO # 0.6 K/uL (0.0-0.8); MONO % 7.1 % (0.0-10.0); NRBC % 0.1 % (0.0-2.0); RBC 5.35 Mil/uL (4.40-5.90); RED CELL DISTRIBUTION WIDTH 14.8 % (11.5-14.5); WHITE BLOOD COUNT 8.2 K/uL (4.8-10.8)
[2018-11-11 05:44] LABS: CK-MB 0.88 ng/mL (0.0-3.38); TROPONIN I 0.017 ng/mL (0.00-0.120)
[2018-11-11 06:05] LABS: ALB/GLOB RATIO 1.2 (1.0-2.1); ALT/SGPT 8 U/L (21-72); AST/SGOT 28 U/L (17-59); BLOOD UREA NITROGEN 22 mg/dL (9-20); CALCIUM 9.4 mg/dl (8.6-10.4); GFR NON-AFRICAN AMERICAN > 60
[2018-11-11] MEDS ORDERED: Iodixanol 320 mg/ml 150 ml Bottle IV ONE (06:07)
--- NOTE | 2018-11-11 08:43 | RAD ---
Date of service: 11/11/2018 HISTORY: eval mediastinum COMPARISON: 11/08/2018 TECHNIQUE: 1 view obtained. FINDINGS: LUNGS: Current lung volumes less now than before. The bronchovascular markings appear slightly more coarse and slightly more conspicuous-likely in part technical per less lung volume. No dense consolidation. PLEURA: No significant pleural effusion identified, no pneumothorax apparent. CARDIOVASCULAR: There is presence of aortic atherosclerotic calcification on x-ray. Normal cardiac size. Overall bronchovascular markings borderline prominent as above. No pulmonary edema believed present. OSSEOUS STRUCTURES: Thoracic spondylosis. Bilateral shoulder arthrosis. VISUALIZED UPPER ABDOMEN: Normal. OTHER FINDINGS: None. IMPRESSION: Cardiomediastinal silhouette within normal limits. Atherosclerotic vascular calcifications. Other findings as above.
[2018-11-11 08:59] VITALS: TEMP 98
--- NOTE | 2018-11-11 09:40 | CARD ---
APPROVED REPORT Date of service: 11/09/2018 EXAM: Two-dimensional and M-mode echocardiogram with Doppler and color Doppler. INDICATION Chest Pain COPD RISK FACTORS Hypertension Hyperlipidemia 2D DIMENSIONS IVSd1.1 (0.7-1.1cm)LVDd5.2 (3.9-5.9cm) PWd1.1 (0.7-1.1cm)LA Yyjzvr50 (18-58mL) LVDs3.4 (2.5-4.0cm)FS (%) 34.5 % LVEF (Andrade's)45.78 %IVC0.00 cm M-Mode DIMENSIONS Left Atrium (MM)3.76 (2.5-4.0cm)Aortic Root3.44 (2.2-3.7cm) Aortic Cusp Exc.2.39 (1.5-2.0cm) Mitral Valve MV E Norroezd17.1cm/sMV A Ozwvxdue33.7cm/sE/A ratio0.9 ZNAH710.24 cm/s TDI Lateral E' Peak V7.45cm/sMedial E' Peak V4.48cm/sE/Lateral E'11.3 E/Medial E'18.8 Tricuspid Valve TR Peak Idgeujxo484pm/sTR Peak Gr.33neWuCHTV05gzCt <Conclusion> Left ventricle: thickness: normal; size: normal; overall ejection fraction: 55%: diastolic filling pressures: elevated Mitral valve: annulus: normal: leaflets: calcified thickening: excursion: normal; no significant trans-mitral gradient: mild incompetence: left atrium: normal Aortic valve: leaflets: calcified thickening: excursion: normal; no significant trans-aortic gradient: no incompetence: aortic root: normal Right sided Structures: Pulmonary valve: normal; no significant incompetence; Tricuspid valve: normal; no significant incompetence: Intra-cardiac hemodynamics: pulmonary systolic pressures: normal; central venous pressures: normal No pericardial effusion
[2018-11-11 10:55] VITALS: BP 129/78; PULSE 83; RESP 13; O2SAT 95
--- NOTE | 2018-11-11 12:33 | CT ---
Date of service: 11/11/2018 CT Dissection protocol Indication: r/o aortic dissection Technique: Contiguous axial images were obtained through the chest/abdomen/pelvis without and with intravenous contrast enhancement utilizing dissection protocol technique. Sagittal and coronal reconstructions were generated and reviewed. This CT exam was performed using 1 or more of the following dose reduction techniques: Automated exposure control, adjustment of the MAA and/or kV according to patient size, and/or use of iterative reconstruction technique. Radiation dose (DLP): 2190.11 MGy-cm. Contrast: 100 mL Visipaque 320 IV Findings: Visualized portions of the inferior thyroid gland appear heterogeneous. The mediastinal and hilar vascular structures appear within normal limits. The heart appears within normal limits of size. Sub cm mediastinal adenopathy, nonspecific. No evidence of thoracic aorta dissection or aneurysmal dilatation. Bilateral peribronchial thickening. Bibasilar atelectasis. No pleural effusion. No pneumothorax. Abdominal aortic aneurysm measures approximately 4.4 x 3.9 x 6.5 cm (AP by transverse by CC dimensions). Extensive atherosclerotic calcifications as well as atheromatous mural plaque evident. The origins of the celiac artery, superior mesenteric artery and bilateral renal arteries appear patent. Inferior mesenteric artery origin less well visualized. Aneurysmal dilatation of bilateral common iliac arteries with atherosclerotic calcifications and mural plaque. The liver appears within normal limits of size and morphology. Hyperdensity within the gallbladder presumably due to vicarious excretion of contrast. The pancreas, spleen, adrenal glands, and gallbladder appear otherwise grossly unremarkable. The kidneys enhance symmetrically without evidence of hydronephrosis or obstructing renal calculi. No enlarged abdominal lymphadenopathy is identified. The stomach is nondistended. Visualized bowel loops appear within normal limits of caliber without evidence of obstruction. The appendix appears normal. No inflammatory changes are seen in the right lower quadrant to suggest acute appendicitis. No definite free air. Contrast noted within the urinary bladder presumably due to timing of image acquisition. The urinary bladder appears otherwise unremarkable. The prostate gland measures approximately 4.1 x 4.7 cm. Small bilateral fat containing inguinal hernias. No significant pelvic free fluid is identified. Degenerative changes of the spine. Impression: Abdominal aortic aneurysm measuring approximately 4.4 x 3.9 x 6.5 cm. Heterogeneous appearance of the thyroid gland; outpatient thyroid ultrasound may be considered for further evaluation if indicated. Additional findings as above. Preliminary impression was provided by [employer]
--- NOTE | 2018-11-14 23:16 | CARDCATH ---
PROCEDURE DATE: 11/10/2018 PROCEDURES: 1. Left heart catheterization. 2. Coronary angiogram. REFERRING PHYSICIAN: María Larson MD PERFORMING PHYSICIAN: Nikolai Dang MD CLINICAL INDICATIONS: 1. Exertional angina. 2. Abnormal stress test. 3. Hypertension. 4. Hyperlipidemia. 5. Chronic obstructive lung disease. DESCRIPTION OF PROCEDURE: After informed consent, the patient was prepped and draped in the usual sterile fashion. Lidocaine 2% was given in the right wrist for local anesthesia. Using micropuncture technique, a 6-[place] sheath was introduced into the right radial artery. A JR4 6-[place] diagnostic catheter was inserted into left ventricle. LVEDP was measured. Contrast was injected and LV angiogram was done. Then, the catheter was pulled back across the aortic valve. Gradient across the aortic valve was measured. Then, the same catheter was engaged into right coronary artery. Contrast was injected and right coronary angiogram was done. Then, the catheter was exchanged to 6-[place] catheter. The catheter was engaged into left main coronary artery. Contrast was injected and left coronary angiogram was done. The patient tolerated the procedure well. Postprocedure, Terumo radial band was applied in the right wrist with excellent hemostasis. FINDINGS: 1. Left main and proximal LAD has severe aneurysmal disease. 2. Proximal LAD has 90% to 95% eccentric stenosis. Mid and distal right LAD is patent. Diagonal branches are patent. 3. Left circumflex is totally occluded in the proximal region. 4. Right coronary artery is totally occluded in the proximal region. 5. Right coronary artery and left circumflex artery are filled by LAD collaterals. 6. LV ejection fraction is approximately 50%. Inferobasal akinesis. EDP is 12. No gradient across the aortic valve. IMPRESSION: 1. Severe left main triple vessel disease. 2. Left ventricular ejection fraction is 50%. 3. Coronary artery aneurysm. PLAN: Recommend open heart surgery. Nikolai Dang MD
== END 2018-11-11 11:15 | disposition short-term general hospital (02) | DRG 287 ==
LOC: C.ER 10:36 → C.9E 13:02 → C.6T 17:00 → OBSVTOIN 11-10 18:26 → C.9I 11-10 20:21
PROVIDERS: ADMIT Internal Medicine Pulmonary Disease; ATTEND Internal Medicine Pulmonary Disease
PROC: 4A023N7 Measurement of Cardiac Sampling and Pressure, Left Heart, Percutaneous Approach (ICD-10-PCS; principal; 2018-11-10)
PROC: B2111ZZ Fluoroscopy of Multiple Coronary Arteries using Low Osmolar Contrast (ICD-10-PCS; 2018-11-10)
PROC: B2151ZZ Fluoroscopy of Left Heart using Low Osmolar Contrast (ICD-10-PCS; 2018-11-10)
DX: I25.41 Coronary artery aneurysm (principal); E78.00 Pure hypercholesterolemia, unspecified; J43.9 Emphysema, unspecified; I10 Essential (primary) hypertension; Z86.73 Personal history of transient ischemic attack (TIA), and cerebral infarction without residual deficits; I25.119 Atherosclerotic heart disease of native coronary artery with unspecified angina pectoris; F14.90 Cocaine use, unspecified, uncomplicated